=== PATIENT | female | born 1930 | race Caucasian/White ===

== ENCOUNTER 2018-04-26 14:41 | Emergency (ER) | payer OTHER ==
[~2018-04-26] VITALS: Ht 160 cm; Wt 66.7 kg
[2018-04-26 16:57] LABS: HEMOGLOBIN 12.5 gm/dL (12.0-15.0); MCH 30.4 pg (26.0-34.0); MCHC 33.7 g/dL (28.0-37.0); MCV 90.3 fL (80.0-100.0); PLATELET COUNT 173 thou/uL (150-400); RBC 4.09 mil/uL (4.20-5.00); RDW 13.6 % (10.5-14.5)
[2018-04-26 17:05] LABS: CALCIUM 9.6 mg/dL (8.5-10.1); CREATININE 1.2 mg/dL (0.6-1.0)
[2018-04-26 17:33] LABS: ABSOLUTE NEUTROPHILS 6.2 thou/uL (1.4-8.2)
[2018-04-26 17:40] VITALS: BP 106/44
== END 2018-04-26 17:40 | disposition home or self-care (01) ==
LOC: ER 14:41
PROVIDERS: Physician Assistant
DX: M70.71 Other bursitis of hip, right hip (principal); S91.104A Unspecified open wound of right lesser toe(s) without damage to nail, initial encounter; J45.909 Unspecified asthma, uncomplicated; Z96.653 Presence of artificial knee joint, bilateral; Z98.890 Other specified postprocedural states; Z90.89 Acquired absence of other organs; W18.39XA Other fall on same level, initial encounter; Y92.89 Other specified places as the place of occurrence of the external cause; Y93.89 Activity, other specified; Y99.8 Other external cause status